=== PATIENT | male | born 2000 | race Caucasian/White ===

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

== ENCOUNTER 2021-02-08 23:22 | Emergency (ER) | payer OTHER ==
[~2021-02-08] VITALS: Ht 175.3 cm; Wt 59.0 kg
[2021-02-08] MEDS ORDERED: Prednisone20 MG PO (23:47)
== END 2021-02-08 23:50 | disposition home or self-care (01) ==
LOC: ER 23:22
DX: L23.7 Allergic contact dermatitis due to plants, except food (principal); Z88.0 Allergy status to penicillin; Z79.52 Long term (current) use of systemic steroids; Z88.1 Allergy status to other antibiotic agents
CPT/HCPCS: 99282; J7512

== ENCOUNTER 2021-02-13 21:11 | Emergency (ER) | payer OTHER ==
[~2021-02-13] VITALS: Ht 172.7 cm; Wt 59.0 kg
[~2021-02-13 21:11] MED LIST: Prednisone20 MG PO
[2021-02-13] MEDS ORDERED: BENADRYL25 MG PO (23:52)
[2021-02-13] MEDS ORDERED: Triamcinolone A15 GM TOP (23:52)
== END 2021-02-14 03:50 | disposition home or self-care (01) ==
LOC: ER 21:11
DX: L23.7 Allergic contact dermatitis due to plants, except food (principal); Z88.0 Allergy status to penicillin; Z88.1 Allergy status to other antibiotic agents; Z91.012 Allergy to eggs
CPT/HCPCS: 99282; A9270

== ENCOUNTER 2022-02-26 16:20 | Emergency (ER) | payer OTHER ==
[~2022-02-26] VITALS: Ht 172.7 cm; Wt 59.0 kg
[~2022-02-26 16:20] MED LIST changes: +BENADRYL25 MG PO; +Triamcinolone A15 GM TOP
== END 2022-02-26 18:43 | disposition home or self-care (01) ==
LOC: ER 16:20
DX: J00 Acute nasopharyngitis [common cold] (principal); Z20.822 Contact with and (suspected) exposure to COVID-19; Z88.0 Allergy status to penicillin; Z88.8 Allergy status to other drugs, medicaments and biological substances; Z91.012 Allergy to eggs
CPT/HCPCS: 99282